=== PATIENT | male | born 1990 | race Hispanic/Latino ===

== ENCOUNTER 2017-02-11 12:37 | Emergency (ER) | payer OTHER ==
[2017-02-11] MEDS ORDERED: Adacel (T-DAP) 0.5 ML VIAL ONE (13:05)
[2017-02-11] MEDS ORDERED: Acetaminophen 500 MG TAB ONE (13:07)
[2017-02-11 14:00] LABS: #Basophils 0.1 thou/uL (0.0-0.2); #Lymphocytes 1.3 thou/uL (1.20-3.40); #Monocytes 0.6 thou/uL (0.11-0.59); %Basophils 0.8 % (0.0-1.0); %Eosinophils 0.3 % (0.0-10.0); %Lymphocytes 9.7 % (21.0-51.0); %Monocytes 4.8 % (0.0-10.0); %Neutrophils 84.5 % (42.0-75.0); Hemoglobin 15.7 g/dL (14.0-18.0); Mean Corpuscular HGB CONC 34.7 g/dL (32.0-36.0); Mean Corpuscular Hemoglobin 29.9 pg (27.0-31.0); Mean Corpuscular Volume 86.2 fl (80.0-94.0); Mean Platelet Volume 9.4 fL (7.4-10.4); Platelet Count 196 thou/uL (130-400); RBC Distribution Width 11.1 % (11.5-14.5); Red Blood Cell (RBC) Count 5.25 mill/uL (4.70-6.10)
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
[2017-02-11 14:14] LABS: ALT (SGPT) 18 U/L (8-55); AST (SGOT) 19 U/L (5-34); Albumin 4.9 g/dL (3.5-5.0); Alkaline Phosphatase 84 U/L (40-150); Anion Gap 14 mmol/L (10-20); BUN (Urea Nitrogen) 9 mg/dL (8.9-20.6); Bilirubin, Total 0.4 mg/dL (0.2-1.2); Calc. Creatinine Clearance 0 mL/min (70-130); Calcium 9.8 mg/dL (7.8-10.44); Carbon Dioxide 25 mmol/L (22-29); Chloride 106 mmol/L (98-107); Estimated GFR-MDRD Greater than 90; Globulin 3.2 g/dL (2.4-3.5); Glucose 111 mg/dL (70-105); Potassium 3.7 mmol/L (3.5-5.1); Protein, Total 8.1 g/dL (6.0-8.3); Sodium 141 mmol/L (136-145)
[2017-02-11 14:19] LABS: INR-International Normal Ratio 1.1; PTT 28.1 SEC (22.9-36.1); Prothrombin Time 14.1 SEC (12.0-14.7)
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
== END 2017-02-11 14:55 | disposition short-term general hospital (02) ==
LOC: NAV ERS 12:37
DX: S01.412A Laceration without foreign body of left cheek and temporomandibular area, initial encounter (principal); I61.9 Nontraumatic intracerebral hemorrhage, unspecified; F31.9 Bipolar disorder, unspecified; F20.9 Schizophrenia, unspecified; Y04.0XXA Assault by unarmed brawl or fight, initial encounter
CPT/HCPCS: 12011; 70100; 70450; 72125; 80053; 85025; 85610; 85730; 90471; 90715